=== PATIENT | male | born 1980 | race Caucasian/White ===

== ENCOUNTER 2020-07-24 01:33 | Emergency (ER) | payer OTHER, SELFPAY ==
[2020-07-24 01:38] VITALS: BP 143/90; PULSE 101; RESP 20; TEMP 36.7; O2SAT 98
--- NOTE | 2020-07-24 01:47 | W.ED.GENAD ---
Discharge Plan Disposition Patient Disposition: HOME Condition: Stable Discharge Details Clinical Impression: Dental infection Primary Care Provider: Michaela Sweet ED Provider: Desean Yarbrough Home Meds and New Rx's Prescriptions: New prednisone 20 mg tablet 60 mg PO DAILY 4 Days Qty: 12 RF: 0 amoxicillin-pot clavulanate [Augmentin] 875-125 mg tablet 1 tab PO BID Qty: 14 RF: 0 Continued Fish Oil 500 MG capsule 500 mg PO RF: 0 acetaminophen 500 mg Tablet 100 mg PO Q6H PRNRF: 0 naproxen sodium [Aleve] 220 mg Tablet 220 mg PO BID RF: 0 Discontinued penicillin V potassium 500 mg Tablet 1,000 mg PO Q6H RF: 0 Discharge Instructions Instructions: Dental Abscess (ED) Additional Instructions: stop the penicillin and start taking augmentin follow up with your dentist within 1-2 weeks If you feel more ill,have severe worsening pain or fevers return to the emergency department Medical Decision Making 40 yo male who states yesterday was placed on penicillin by his dentist for a right lower molar infection comes in as he feels it is becoming more swollen and has some right mid face pain now. No fevers, difficulty swallowing or breathing. Has tenderness to percussion of the right mid lower molars with no visible abscess, mild swelling of the gums in this area, no submandibular swelling, no pain over hyoid and no restricted neck movements and has a normal oropharynx otherwise with midline uvula. EOMI without pain and no vision changes. Suspect dental infection no indication of rpa, guest experience captain, epiglotitis, ludwigs, orbital cellulitis. Given no relief with penicillin will stop this and start augmentin and also prednisone. ADvised to f/u with pcp and return precautions given Differential Diagnosis Differential Diagnosis: dental abscess, caries, sinusitis HPI General Mode of arrival: ambulatory. Date/Time Provider Initiated Documentation: 07/24/20 01:35. Limitations to Documentation: no limitations. Information obtained by: patient. History of Present Illness 40 year old M presents to the emergency department with the chief complaint of right lower dental pain, described as moderate, and it has been constant. No relieving factors improve symptom(s), No exacerbating factors reported . Related Data Home Medications Medication Instructions Recorded Confirmed Fish Oil 500 mg PO 09/25/15 acetaminophen 100 mg PO Q6H PRN 07/24/20 07/24/20 amoxicillin-pot clavulanate 1 tab PO BID #14 tab 07/24/20 [Augmentin] naproxen sodium [Aleve] 220 mg PO BID 07/24/20 07/24/20 prednisone 60 mg PO DAILY 4 Days #12 tab 07/24/20 Previous Rx's Medication Instructions Recorded amoxicillin-pot clavulanate 1 tab PO BID #14 tab 07/24/20 [Augmentin] prednisone 60 mg PO DAILY 4 Days #12 tab 07/24/20 Allergies Allergy/AdvReac Type Severity Reaction Status Date / Time ibuprofen Allergy Unverified 07/24/20 01:47 General Stated Complaint: DentalOral BLAKE: 4 Review of Systems All systems reviewed & are unremarkable except as noted in HPI and below Constitutional Constitutional: Denies chills, Denies fever(s) and Denies weakness Cardiovascular Cardiovascular: Denies chest pain and Denies dyspnea Respiratory Respiratory: Denies cough and Denies dyspnea Gastrointestinal Gastrointestinal: Denies abdominal pain, Denies nausea and Denies vomiting Musculoskeletal Musculoskeletal: Denies joint swelling Neurologic Neurologic: Denies weakness REPLACED BY [facility] Social History Smoking/Tobacco Use Status: Never Smoking risk assessment performed?: Yes Alcohol Intake: current Alcohol Intake frequency: holidays/special occasions only Drug use: Never Substance use type: does not use Do you feel safe at home: Yes Do you feel safe in your relationship?: Yes Exam Const General: no acute distress Orientation: alert HENMT Head: normal to inspection Ears: external ears normal General nose exam: external nose normal Mouth: moist mucous membranes Eyes General: appearance normal, both eyes and all related structures Neck Neck: normal visual inspection Resp Effort & Inspection: normal respiratory effort and able to speak in complete sentences Cardio Rate: regular rate Skin General skin exam: no rashes or lesions noted Neuro General: patient alert and patient oriented x3 Extrem General: normal to inspection Psych Mental Status: mental status grossly normal Course Vital Signs Vital signs: Vital Signs Temperature 36.7 C 07/24/20 01:38 Pulse 101 H 07/24/20 01:38 Respiratory Rate 20 07/24/20 01:38 Blood Pressure 143/90 H 07/24/20 01:38 Pulse Oximetry 98 07/24/20 01:38 Temperature 36.7 C 07/24/20 01:38 Temperature Source Skin 07/24/20 01:38 Pulse 101 H 07/24/20 01:38 Respiratory Rate 20 07/24/20 01:38 Respiratory Effort Non-Labored 07/24/20 01:44 Blood Pressure 143/90 H 07/24/20 01:38 Blood Pressure Position Sitting 07/24/20 01:38 Pulse Oximetry 98 07/24/20 01:38 Oxygen Delivery Method Room Air 07/24/20 01:38 Oxygen Flow Rate 0 07/24/20 01:38 Pain Level 2 07/24/20 01:45
[2020-07-24] MEDS: predniSONE 20 MG TAB 60 MG PO (01:54)
[2020-07-24] MEDS: Amoxicillin 875/Clav. 125 TAB PO (01:54)
== END 2020-07-24 01:56 | disposition home or self-care (01) ==
LOC: ER 01:50
PROVIDERS: Emergency Provider Emergency Medicine; PCP Internal Medicine
DX: R68.84 Jaw pain (principal); K04.7 Periapical abscess without sinus
CPT/HCPCS: 99283; J7512

== ENCOUNTER 2021-05-05 14:23 | Outpatient (REF) | payer OTHER, SELFPAY ==
[2021-05-05 11:27] LABS: Source Nasal/Nares
[2021-05-05 16:28] LABS: COVID-19 PCR Negative (Negative)
== END 2021-05-05 14:24 | disposition home or self-care (01) ==
LOC: LBN 14:23
PROVIDERS: PCP Internal Medicine; Visit Provider Nurse Practitioner Family
DX: Z20.822 Contact with and (suspected) exposure to COVID-19 (principal)
CPT/HCPCS: 87635

== ENCOUNTER 2021-05-09 10:33 | Outpatient (REF) | payer OTHER, SELFPAY ==
--- OUTSIDE RECORDS SUMMARY | 2021-05-09 10:37 | XMS_ITS ---
:1980 Author Care Team Providers Name Role Phone MICHAELA SWEET MD Primary Care Provider [phone] Allergies Code Code System Name Reaction Severity Status Onset 5640 RxNorm Ibuprofen ? ? Active ? Medications Name Status Start Date Stop Date ? ? amoxicillin 875 mg-potassium Completed ? 08/2020 clavulanate 125 mg tablet azithromycin 250 mg tablet Completed 07/13/201307/18 1 (one) Tablet: see below clindamycin HCl 150 mg capsule Completed ? 0 12/18/2020 TAKE 1 CAPSULE 3 TIMES A DAY UNTIL FINISHED Excedrin Extra Strength 250 mg-250 mg-65 mg tablet Active ? Not available Take 2 tablets by oral route as needed. Fish Oil Active ? Not available 1 cap daily oseltamivir 75 mg capsule Completed ? 2018 penicillin V potassium 500 mg Completed ? tablet potassium citrate ER 10 mEq (1,080 mg) tablet,extended relea se Completed 07/27/2013 07/16/2014 1 Tablet ER: bid - twice daily prednisone 20 mg tablet Completed ? 12/19/19 21 Problems Name Status Onset Date Source ? 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 History Obesity Active ? History Migraine Active ? History Nasal Congestion Active ? History Asthma Active ? History Adult Health Examination Active ? History Education Unknown ? History Procedures Date Name Performed by ? 10/18/2015 Vasectomy Information not avai lable Notes: Lithotripsy 02/2010 Results Lab Results Date Name Specimen Result Interpretation Description Value Range Status Address ? 01/03/2021 CMP, Serum or S ? g/r 94 74-106 Final [facility] Plasma mg/dL mg/dL Hospital L [facility] (Internal) : [address] ? ? S ? Bun 14 9-20 Final [facility] try mg/dL mg/dL Hospital L [facility] (Internal) : [address] ? ? S ? Crea 1.00 0.66-1.2 [place] [facility] mg/dL 5 mg/dL Hospital Lab (Internal) : [address] ? ? S ? Ca 9.5 8.4-10.2 [facility] [place] [facility] mg/dL mg/dL [facility] ([facility]) : [address] ? ? S ? Na 141 137-145 [facility] [place] [facility] mmol/L mmol/L [facility] ([facility]) : [address] ? ? S ? K 4.5 3.5-5.1 [facility] [place] [facility] mmol/L mmol/L [facility] ([facility]) : [address] ? ? S ? Cl 106 98-107 [facility] [place] [facility] mmol/L mmol/L [facility] (Internal) : [address] ? ? S ? Tco2 27.0 22.0-30. [facility] [place] [facility] mmol/L 0 mmol/L Hospital Lab (Internal) : [address] ? ? S ? Tp 7.7 6.3-8.2 [facility] [place] [facility] g/dL g/dL [facility] (Internal) : [address] ? ? S ? Alb 4.5 3.5-5.0 [facility] [place] [facility] g/dL g/dL [facility] (Internal) : [address] ? ? S ? Tbil 0.8 0.2-1.3 [facility] [place] [facility] mg/dL mg/dL [facility] ([facility]) : [address] ? ? S ? Alp 81 U/L 50-136 [facility] U/L [facility] ([facility]) : [address] ? ? S ? Alt 52 U/L 21-72 Final [facility] try (Sgpt) U/L Hospital [facility] (Internal) : [address] ? ? S ? Ast 38 U/L 17-59 Final [facility] try (Sgot) U/L Hospital [facility] (Internal) : [address] 01/03/2021 Lipid Panel, S High Chol 217 50-200 Final [facility] Serum mg/dL mg/dL Hospital [facility] (Internal) : [address] ? ? S High Trig 304 10-150 Final [facility] try mg/dL mg/dL Hospital [facility] (Internal) : [address] ? ? S Low Hdl 28 40-60 Final [facility] try mg/dL mg/dL Hospital [facility] (Internal) : [address] [place] ? ? S ? Ldl 128 0-130 Final [facility] try mg/dL mg/dL [facility] (Internal) : [address] 01/03/2021 CBC W/ Auto BLD ? Wbc 7.0 5.0-10.0 Final [facility] Diff 10*3/uL 10*3/uL Hospital Lab (Internal) : [address] ? ? BLD ? Rbc 5.17 4.60-6.0 Final [place] [facility] 10*6/uL 0 Hospital Lab 10*6/uL (Internal ): [address] ? ? BLD ? Hgb 14.6 14.0-18. Final [facility] untry g/dL 0 g/dL Hospital L [facility] (Internal) : [address] ? ? BLD ? Hct 44.5 % 41.0-51. Final [facility] untry 0 % Hospital L [facility] (Internal) : [address] ? ? BLD ? Mcv 86.1 fL 80.0-96. Final [facility] [facility] 0 fL [facility] (Internal) : [address] ? ? BLD ? Mch 28.2 pg 26.0-32. Final [place] [facility] 0 pg Hospital [facility] (Internal) : [address] ? ? BLD ? Mchc 32.8 31.0-35. Final [facility] untry g/dL 0 g/dL Hospital L [facility] (Internal) : [address] ? ? BLD ? Rdw 12.8 % 11.5-14. Final [facility] untry 5 % Hospital L [facility] (Internal) : [address] ? ? BLD ? Plt 285 130-450 Final [place] [facility] 10*3/uL 10*3/uL Hospital Lab (Internal) : [address] ? ? BLD ? Anc 3.58 ? [facility] 10*3/uL Hospital Lab (Internal) : [address] ? ? BLD ? Nlr 1.56 0.00-3.2 Final [facility] untry 0 Hospital L ab (Internal) : [address] ? ? BLD ? Neutro 51.4 % 40.0-75. Final [facility] ountry 0 % Hospital L [facility] (Internal) : [address] ? ? BLD ? Lymph 32.9 % 20.0-50. Final [facility] untry 0 % Hospital L [facility] (Internal) : [address] ? ? BLD ? [place] 8.3 % 2.0-10.0 Final [facility] untry % Hospital L [facility] (Internal) : [address] ? ? BLD ? Eos 5.6 % 1.0-6.0 Final [facility] ntry % Hospital L [facility] (Internal) : [address] ? ? BLD High Baso 1.1 % 0.0-1.0 Final [facility] ntry % Hospital L [facility] (Internal) : [address] ? ? BLD ? Ig 0.7 % 0.0-0.9 Final [facility] ntry % Hospital L [facility] (Internal) : [address] 03/15/2019 Lipid Panel, S High Chol 216 50-200 Final [facility] Serum mg/dL mg/dL Hospital L [facility] (Internal) : [address] ? ? S High Trig 289 10-150 Final [facility] try mg/dL mg/dL Hospital L ab (Internal) : [address] ? ? S Low Hdl 26 40-60 Final [facility] mg/dL mg/dL Hospital L [facility] (Internal) : [address] ? ? S High Ldl 132 0-130 Final [facility] try mg/dL mg/dL Hospital L ab (Internal) : [address] 03/15/2019 Glucose, S - Fbs 88 74-106 Final [facility] Fasting, mg/dL mg/dL Hospital Lab Serum/plasma (Int ernal): [address] 02/18/2018 Lipid Panel, S - Chol 188 50-200 Final [facility] Serum mg/dL mg/dL Hospital L [facility] (Internal) : [address] ? ? S High Trig 151 10-150 Final [facility] try mg/dL mg/dL Hospital L [facility] (Internal) : [address] ? ? S Low Hdl 29 40-60 Final [facility] try mg/dL mg/dL Hospital L [facility] (Internal) : [address] ? ? S - Ldl 129 0-130 [facility] mg/dL mg/dL Hospital [facility] (Internal) : [address] 02/18/2018 Glucose, S - Fbs 84 74-106 Final [facility] Fasting, mg/dL mg/dL Hospital Lab Serum/plasma (Int ernal): [address] 02/16/2017 Venipuncture BLD ? Venpn* ? ? Final [facility] Hospital L [facility] (Internal) : [address] 02/16/2017 Lipid Panel, S ? Chol 180 50-200 Final [facility] Serum mg/dL mg/dL Hospital L [facility] (Internal) : [address] ? ? S High Trig 675 10-150 Final [facility] try mg/dL mg/dL Hospital L ab (Internal) : [address] ? ? S Low Hdl 19 40-60 Final [facility] try mg/dL mg/dL Hospital L ab (Internal) : [address] Past Encounters 12/18/2020 Hypertensive Disorder; Snoring; Hyperlip idemia Michaela Sweet MD: [address] [place] [phone], Ph. 06/19/2020 Hypertensive Disorder Michaela Sweet MD: [address] [place] [phone], Ph. 03/18/2020 Adult Health Examination; Hypertensive D isorder Michaela Sweet MD: [address] [place] [phone], Ph. Social History Tobacco Smoking Status Never Smoker Vaccine List Vaccine Type COVID-19, mRNA, LNP-S, PF, 100 mcg/0.5 m L dose 10/30/2020?100 mcg 11/27/2020?0.5 mL Hep B, adolescent or pediatric 02/18/1995 04/20/1995 10/19/1995 Tdap 09/21/2011?0.5 mL Plan of Care Reminders Provider Appointments None ? ? recorded. Lab None ? ? recorded. Referral None ? ? recorded. Procedures None ? ? recorded. Surgeries None ? ? recorded. Imaging None ? ? recorded. Vitals 12/18/2020 08:40AM Follow Up 20 Height Weight BMI Blood Pressure 164.47 cm 89.81 kg 33.2 kg/m2 124/80 mm[Hg] 06/19/2020 12:40PM Follow Up 20 Height Weight BMI Blood Pressure 164.47 cm 92.08 kg 34 kg/m2 120/88 mm[Hg] 03/18/2020 11:20AM CPE 40 Height Weight BMI Blood Pressure 164.47 cm 91.43 kg 33.8 kg/m2 150/80 mm[Hg] 04/19/2019 04:20PM Acute 20 Height Weight BMI Blood Pressure 164.47 cm 89.36 kg 33 kg/m2 120/80 mm[Hg] 03/15/2019 12:20PM CPE 40 Height Weight BMI Blood Pressure 164.47 cm 87.54 kg 32.4 kg/m2 112/80 mm[Hg] 02/18/2018 09:40AM CPE 40 Height Weight BMI Blood Pressure 164.47 cm 82.55 kg 30.5 kg/m2 110/80 mm[Hg] 02/16/2017 Height Weight Blood Pressure 165.1 cm 86.09 kg 118/84 mm[Hg] 02/12/2016 Height Weight Blood Pressure 164.47 cm 82.55 kg 129/65 mm[Hg] 02/06/2015 Height Weight Blood Pressure 164.47 cm 81.42 kg 124/72 mm[Hg] 07/16/2014 Weight Blood Pressure 87.14 kg 126/72 mm[Hg] 01/15/2014 Height Weight Blood Pressure 164.47 cm 88.09 kg 116/74 mm[Hg] 07/13/2013 Weight Blood Pressure 87.04 kg 140/70 mm[Hg] 09/21/2011 Height Weight Blood Pressure 165.1 cm 86.18 kg 130/80 mm[Hg]
[2021-05-09 22:41] LABS: COVID-19 RT-PCR UVMMC Result Negative (Negative)
== END 2021-05-09 10:34 | disposition home or self-care (01) ==
LOC: LBN 10:33
PROVIDERS: PCP Internal Medicine; Visit Provider Nurse Practitioner Family
DX: Z20.822 Contact with and (suspected) exposure to COVID-19 (principal)
CPT/HCPCS: U0003

== ENCOUNTER 2021-08-22 12:34 | Outpatient (REF) | payer OTHER, SELFPAY ==
[2021-08-23 01:28] LABS: COVID-19 RT-PCR UVMMC Result Negative (Negative)
== END 2021-08-22 12:35 | disposition home or self-care (01) ==
LOC: LBN 12:34
PROVIDERS: PCP Internal Medicine; Visit Provider Nurse Practitioner Family
DX: Z20.822 Contact with and (suspected) exposure to COVID-19 (principal)
CPT/HCPCS: U0003

== ENCOUNTER 2021-08-25 19:40 | Outpatient (REF) | payer OTHER, SELFPAY | END 2021-08-25 19:41 | disposition home or self-care (01) | LOC: LBO 19:40 | PROVIDERS: PCP Internal Medicine; Visit Provider Nurse Practitioner Family ==

== ENCOUNTER 2022-08-04 03:39 | Outpatient (CLI) | payer OTHER, SELFPAY ==
[2022-08-04 09:35] LABS: Calculated LDL 121 mg/dL (<100); Cholesterol 223 mg/dL (<200); HDL Cholesterol 29 mg/dL (40-60); Triglyceride 366 mg/dL (<150)
== END 2022-08-04 03:40 | disposition home or self-care (01) ==
LOC: LBO 03:39
PROVIDERS: PCP Internal Medicine; Visit Provider Internal Medicine
DX: R74.8 Abnormal levels of other serum enzymes (principal)
CPT/HCPCS: 36415; 80061

== ENCOUNTER 2024-09-22 00:46 | Outpatient (CLI) | payer OTHER, SELFPAY ==
[2024-09-22 08:25] LABS: Calculated LDL 116 mg/dL (<100); Cholesterol 182 mg/dL (<200); HDL Cholesterol 55 mg/dL (>or=40); Triglyceride 57 mg/dL (<150)
== END 2024-09-22 00:47 | disposition home or self-care (01) ==
PROVIDERS: PCP Internal Medicine; Visit Provider Internal Medicine
DX: E78.5 Hyperlipidemia, unspecified (principal)
CPT/HCPCS: 36415; 80061